=== PATIENT | male | born 1980 | race Caucasian/White ===

== ENCOUNTER 2018-02-07 09:57 | Emergency (ER) | payer OTHER ==
[~2018-02-07] VITALS: Ht 172.7 cm; Wt 75.0 kg
[2018-02-07 09:59] VITALS: BP 147/90; PULSE 70; RESP 14; TEMP 98.2; O2SAT 97
[2018-02-07] MEDS ORDERED: DEXAMETHASONE SOD PHOS 4 MG/ML VIAL IM ONE (10:45)
--- NOTE | 2018-02-07 10:47 | PD ---
HPI Chief Complaint: Cold / Flu Symptoms Time Seen by Provider: 10:42 Travel History International Travel<30 days: No Contact w/Intl Traveler<30days: No Traveled to known affect area: No History of Present Illness HPI Onset of cough since Thursday, initially productive, also had associated nausea vomiting and diarrhea over the past couple of days. pt denies any alleviating/ aggravating factors....pt denies any assoc factors such as fever/rash/blake/ neckpain/cp/abdpain/backpain. No known drug allergies Past medical history only significant for pneumonia in the past Denies any's major surgeries, only states a repair to a tendon in his left hand , patient also stated that he had an anterior approach neck surgery unknown what was repaired. PFSH Past Medical History Medical History: Denies Significant Hx Tetanus Vaccination: Unknown Influenza Vaccination: No Past Surgical History Other Surgery: Yes (CYST REMOVED FROM THROAT) Social History Alcohol Use: Yes (SOCIALLY) Tobacco Use: Yes (1/2 PPD) Substance Use: No Allergies-Medications (Allergen,Severity, Reaction): Coded Allergies: No Known Allergies (Unverified , 02/07/18) Reported Meds & Prescriptions Reported Meds & Active Scripts Active Zithromax Z-Andrew (Azithromycin) 250 Mg Dspk 250 Mg PO DIRECTED 500 MG (2 tabs) day 1, then 1 tab days 2-5. Proventil Hfa 6.7 GM Inh (Albuterol Sulfate) 90 Mcg/Act Aer 2 Puff INH Q4-6H PRN Medrol Dosepak (Methylprednisolone) 4 Mg Dspk 4 Mg PO DIRECTED Per Pharmacist direction Review of Systems Except as stated in HPI: all other systems reviewed are Neg General / Constitutional: No: Fever Eyes: No: Visual changes HENT: No: Headaches Cardiovascular: No: Chest Pain or Discomfort Respiratory: Positive: Cough Gastrointestinal: No: Abdominal Pain Genitourinary: No: Dysuria Musculoskeletal: No: Pain Skin: No Rash Neurologic: No: Weakness Psychiatric: No: Depression Endocrine: No: Polydipsia Hematologic/Lymphatic: No: Easy Bruising Physical Exam Narrative GENERAL: SKIN: Warm and dry. HEAD: Atraumatic. Normocephalic. EYES: Pupils equal and round. No scleral icterus. No injection or drainage. ENT: No nasal bleeding or discharge. Mucous membranes pink and moist. NECK: Trachea midline. No JVD. CARDIOVASCULAR: Regular rate and rhythm. RESPIRATORY: No accessory muscle use. Scattered wheezing heard over the right lower lobe, excellent tidal volume bilaterally otherwise GASTROINTESTINAL: Abdomen soft, non-tender, nondistended. MUSCULOSKELETAL: Extremities without clubbing, cyanosis, or edema. No obvious deformities. NEUROLOGICAL: Awake and alert. No obvious cranial nerve deficits. Motor grossly within normal limits. Five out of 5 muscle strength in the arms and legs. Normal speech. PSYCHIATRIC: Appropriate mood and affect; insight and judgment normal. Data Data Last Documented VS Orders Orders Chest, Pa & Lat (02/07/18 10:43) Albuterol-Ipratropium Neb (Duoneb Neb) (02/07/18 10:45) Dexamethasone Inj (Decadron Inj) (02/07/18 10:45) Ed Discharge Order (02/07/18 11:24) [facility] Medical Decision Making Medical Screen Exam Complete: Yes Emergency Medical Condition: Yes Medical Record Reviewed: Yes Differential Diagnosis pna v asthma v bronchospasm v bronchitis Narrative Course Pulse ox: Pleth wave shows excellent, bedside pulse ox is 96-98% on room air which is within normal limits Chest x-ray does not show any pleural effusions, pneumothorax or any evidence of pneumonia. Patient will be discharged and treated with outpatient antibiotics Diagnosis Primary Impression: bronchospasm Patient Instructions: Acute Bronchitis (ED), General Instructions Departure Forms: Tests/Procedures, Work Release Scripts Azithromycin (Zithromax Z-Andrew) 250 Mg Dspk 250 MG PO DIRECTED for Infection, #1 DSPK 0 Refills 500 MG (2 tabs) day 1, then 1 tab days 2-5. Prov: Ahmet Evans MD 02/07/18 Albuterol 6.7 GM Inh (Proventil Hfa 6.7 GM Inh) 90 Mcg/Act Aer 2 PUFF INH Q4-6H Y for SHORTNESS OF BREATH, #1 INHALER 0 Refills Prov: Ahmet Evans MD 02/07/18 Methylprednisolone Dosepak (Medrol Dosepak) 4 Mg Dspk 4 MG PO DIRECTED, #1 DSPK 0 Refills Per Pharmacist direction Prov: Ahmet Evans MD 02/07/18 Disposition: 01 DISCHARGE HOME Condition: Stable Ahmet Evans MD Feb 07, 2018 10:47
[2018-02-07] MEDS ORDERED: MEDR4PAK PO (11:10)
[2018-02-07] MEDS ORDERED: ALBU6.7H INH (11:10)
[2018-02-07] MEDS ORDERED: ZITHTAB PO (11:10)
--- NOTE | 2018-02-07 11:30 | RADRPT ---
EXAM DATE/TIME: 02/07/2018 10:54 [place] COMPARISON: No previous studies available for comparison. INDICATIONS : Wheezing. Cough. Flu symptoms. MEDICAL HISTORY : None. SURGICAL HISTORY : None. ENCOUNTER: Initial ACUITY: 4 - 6 days PAIN SCORE: 6/10 LOCATION: Bilateral chest FINDINGS: PA and lateral views of the chest demonstrate the lungs to be symmetrically aerated without evidence of mass, infiltrate or effusion. The cardiomediastinal contours are unremarkable. Osseous structure s are intact. CONCLUSION: No acute disease. Nichelle Dey MD on February 07, 2018 at 11:28 Board Certified Radiologist. This report was verified electronically.
[2018-02-07] MEDS: RESP: ALBUTEROL 2.5 MG/IPRATROPIUM 0.5 MG NEB (SCH) INH (11:50)
== END 2018-02-07 12:05 | disposition home or self-care (01) ==
LOC: NEPD 09:57
DX: J98.01 Acute bronchospasm (principal); F17.210 Nicotine dependence, cigarettes, uncomplicated
CPT/HCPCS: 71046; 94664; 96372; 99283; J1100

== ENCOUNTER 2018-03-29 09:08 | Emergency (ER) | payer SELFPAY ==
[~2018-03-29] VITALS: Ht 172.7 cm; Wt 78.0 kg
[~2018-03-29 09:08] MED LIST: ALBU6.7H INH; MEDR4PAK PO; ZITHTAB PO
[2018-03-29 09:14] VITALS: BP 117/65; PULSE 74; RESP 16; TEMP 99.1; O2SAT 98
--- NOTE | 2018-03-29 09:42 | PD ---
HPI Chief Complaint: Back/ Neck Pain or Injury Time Seen by Provider: 09:26 Travel History International Travel<30 days: No Contact w/Intl Traveler<30days: No Traveled to known affect area: No History of Present Illness HPI 38-year-old male with history of chronic low back pain presents to the emergency room for evaluation of the same. Pain started yesterday. Patient states yesterday he reached to the right after having cleaned his carpet and felt a sharp, severe pain in his back. Pain radiates into the left buttocks. Pain is 10/10. Worse with certain range of motion, coughing, or any increased intra-abdominal pressure. He had took Aleve last night without significant relief in symptoms. He denies paresthesias, loss of bowel or bladder control, saddle anesthesia, IV drug use, weight loss, night sweats, fever. PFSH Past Surgical History Other Surgery: Yes (CYST REMOVED FROM THROAT) Social History Alcohol Use: Yes (SOCIALLY) Tobacco Use: Yes (1/2 PPD) Substance Use: No Allergies-Medications (Allergen,Severity, Reaction): Coded Allergies: No Known Allergies (Unverified , 03/29/18) Reported Meds & Prescriptions Reported Meds & Active Scripts Active Review of Systems Except as stated in HPI: all other systems reviewed are Neg Physical Exam Narrative GENERAL: Well-nourished, well-developed male in no acute distress. Afebrile. Ambulatory. Moving easily on the bed. SKIN: Focused skin assessment warm/dry. No erythema or ecchymosis. HEAD: Normocephalic. EYES: No scleral icterus. No injection or drainage. NECK: Supple, trachea midline. No JVD or lymphadenopathy. CARDIOVASCULAR: Regular rate and rhythm without murmurs, gallops, or rubs. RESPIRATORY: Breath sounds equal bilaterally. No accessory muscle use. BACK: No midline tenderness. No obvious deformity. No CVA tenderness. 2+ patellar and Achilles reflexes are equal bilaterally. Data Data Last Documented VS Vital Signs Date Time Temp Pulse Resp B/P (MAP) Pulse Ox O2 Delivery O2 Flow Rate FiO2 03/29/18 09:14 99.1 74 16 117/65 (82) 98 Orders Orders Ketorolac Inj (Toradol Inj) (03/29/18 09:45) Dexamethasone Inj (Decadron Inj) (03/29/18 09:45) Orphenadrine Inj (Norflex Inj) (03/29/18 09:45) [facility] Medical Decision Making Medical Screen Exam Complete: Yes Emergency Medical Condition: Yes Medical Record Reviewed: Yes Differential Diagnosis Chronic back pain, strain, contusion, fracture, dislocation, degenerative disc disease Narrative Course 38-year-old male presents to the emergency room for evaluation of acute on chronic low back pain. Pain started yesterday. Patient was cleaning carpets but denies any other trauma or injury. No red flag symptoms. No midline tenderness. No focal neurological deficits. He is ambulatory and moving easily on the bed. No indication for imaging. Patient was given Decadron, Norflex, and Toradol in the emergency room. Discharged with prescriptions for ibuprofen and Robaxin. Told to follow-up with the primary care physician for outpatient management of chronic condition or return for worsening symptoms. He understands and agrees to plan. Diagnosis Primary Impression: Low back pain Qualified Codes: M54.5 - Low back pain Referrals: Primary Care Physician Additional Instructions: Rest and drink plenty of fluids. Take Robaxin as directed, as needed for pain. Take ibuprofen with food as directed, as needed for pain. Apply ice to the affected area for 20 minutes at a time, as needed for pain and swelling. Follow-up with a primary care physician. Return to the emergency room for worsening symptoms. Disposition: 01 DISCHARGE HOME Condition: Stable Ivelisse Dawkins March 29, 2018 09:42
[2018-03-29] MEDS ORDERED: ROBA750T PO (09:44)
[2018-03-29] MEDS ORDERED: IBUP1TAB7 PO (09:44)
[2018-03-29] MEDS ORDERED: DEXAMETHASONE SOD PHOS 4 MG/ML VIAL IM ONE (09:45)
[2018-03-29] MEDS ORDERED: ORPHENADRINE INJ 60 MG/2 ML AMP IM ONE (09:45)
[2018-03-29] MEDS ORDERED: KETOROLAC TROMETHAMINE 60 MG/2 ML (IM) VIAL IM ONE (09:45)
== END 2018-03-29 10:13 | disposition home or self-care (01) ==
LOC: NEPK 09:08
DX: M54.5 Low back pain (principal); G89.29 Other chronic pain; F17.210 Nicotine dependence, cigarettes, uncomplicated
CPT/HCPCS: 96372; 99283; J1100; J1885; J2360